=== PATIENT | male | born 1960 | race African-American/Black ===

== ENCOUNTER 2018-12-26 19:17 | Inpatient (IN) ==
[2018-12-26] MEDS ORDERED: MORPHINE 4 MG/1 ML VIAL IV STA (19:38)
[2018-12-26] MEDS ORDERED: ONDANSETRON 4 MG/2 ML VIAL IV STA (19:38)
[2018-12-26] MEDS ORDERED: PANTOPRAZOLE 40 MG VIAL IV STA (19:38)
[2018-12-26 19:55] LABS: Basophils # 0.1 10*3/uL (0.0-0.2); Basophils % 0.7 % (0.0-0.8); Eosinophils # 0.4 10*3/uL (0.0-0.87); Eosinophils % 4.6 % (0.00-10.9); Hematocrit 39.9 VOL% (42.0-52.0); Hemoglobin 12.5 GM/DL (14.0-18.0); Immature Granulocytes % 0.3 %; Immature Granulocytes Absolute 0.03 #; Lymphocytes # 2.5 10*3/uL (1.4-4.0); Lymphocytes % 28.3 % (21.2-54.2); Mean Corpuscular HGB Conc 31.3 GM/DL (32-36); Mean Corpuscular Volume 81.3 FL (87-102); Mean Platelet Volume 10.8 FL (9.6-12.0); Monocytes % 10.5 % (1.7-12.7); Neutrophils % 55.6 % (38.7-73.9); Platelet Count 199 T/CUMM (130-400); Red Blood Count 4.91 MC/CUMM (3.8-5.5); Red Cell Distribution Width 14.9 % (9.3-17.3); White Blood Count 8.9 T/CUMM (4-12)
[2018-12-26 20:19] LABS: Albumin 3.4 G/DL (3.4-5.0); Calcium 9.2 MG/DL (8.5-10.1); Osmolality,Calculated 278.7 MOS/KG (273-304); Total Protein 8.3 G/DL (6.4-8.3)
[2018-12-26] MEDS ORDERED: ALBUTEROL/IPRATROPIUM 3 ML NEB RESP TX STA (21:44)
[2018-12-26 23:29] LABS: Apearance,Urine CLEAR (Clear); Bilirubin,Urine Negative (Negative); Blood, Urine Negative (Negative); Glucose,Urine (UA) Negative (Negative); Ketones,Urine Negative (Negative); Nitrite,Urine Negative (Negative); Protein,Urine Negative; RBC,Urine 4 /HPF (0-4); Squamous Epithelial Cell,Urine Occasional /HPF (0-10); Urine Color Yellow (Yellow); Urine Specific Gravity 1.036 (1.001-1.035); Urine Urobilinogen < 2.0 EU/DL (0.2-1.0); WBC,Urine 20 /HPF (0-6)
[2018-12-26] MEDS ORDERED: PROMETHAZINE 25 MG TABLET PO PRN (23:30)
[2018-12-27] MEDS: MORPHINE 4 MG/1 ML VIAL IV PRN ×3 (02:51→15:37)
[2018-12-27 07:31] LABS: Albumin 3.1 G/DL (3.4-5.0); Bilirubin,Total 1.9 MG/DL (0.2-1.0); Osmolality,Calculated 278.5 MOS/KG (273-304); Total Protein 7.7 G/DL (6.4-8.3)
[2018-12-27 08:54] LABS: PT Patient Result 10.8 SECS
[2018-12-27] MEDS: MECLIZINE 12.5 MG TABLET PO SCH ×4 (09:00→20:36)
[2018-12-27] MEDS: amLODIPine 10 MG TABLET PO SCH (09:56)
[2018-12-27] MEDS: METOCLOPRAMIDE 5 MG TABLET PO SCH ×4 (09:56→20:35)
[2018-12-27] MEDS ORDERED: DIAZEPAM 5 MG TABLET PO ONE (12:23)
[2018-12-27] MEDS: predniSONE 10 MG TABLET PO SCH (16:19)
[2018-12-27] MEDS: MEGESTROL 40 MG TABLET PO SCH (16:19)
[2018-12-27] MEDS: PANTOPRAZOLE 40 MG TABLET PO SCH (16:19)
[2018-12-27] MEDS ORDERED: fentaNYL 25 MCG/HR PATCH TRANSDERM SCH (18:00)
[2018-12-27] MEDS: ALBUTEROL/IPRATROPIUM 3 ML NEB RESP TX SCH (19:39)
[2018-12-27] MEDS: ENOXAPARIN 40 MG/0.4 ML SYRINGE SUBCUT SCH (20:35)
[2018-12-28] MEDS: ALBUTEROL/IPRATROPIUM 3 ML NEB RESP TX SCH ×7 (00:11→23:00)
[2018-12-28] MEDS: MORPHINE 4 MG/1 ML VIAL IV PRN ×3 (04:14→21:36)
[2018-12-28 07:12] LABS: Hepatitis B Core IgM Quant 0.09 Index; Hepatitis B Surface Ag Quant < 0.10 Index; Hepatitis B Surface Ag Result Negative (Negative); Hepatitis C Virus Ab Quant > 11.00 Index; Hepatitis C Virus Ab Result Positive (Negative)
[2018-12-28] MEDS: MEGESTROL 40 MG TABLET PO SCH (09:23)
[2018-12-28] MEDS: MECLIZINE 12.5 MG TABLET PO SCH ×4 (09:23→20:05)
[2018-12-28] MEDS: METOCLOPRAMIDE 5 MG TABLET PO SCH ×4 (09:23→20:05)
[2018-12-28] MEDS: amLODIPine 10 MG TABLET PO SCH (09:24)
[2018-12-28] MEDS: PANTOPRAZOLE 40 MG TABLET PO SCH (09:24)
[2018-12-28] MEDS: predniSONE 10 MG TABLET PO SCH (09:24)
[2018-12-28] MEDS: ENOXAPARIN 40 MG/0.4 ML SYRINGE SUBCUT SCH (20:05)
[2018-12-29] MEDS: ALBUTEROL/IPRATROPIUM 3 ML NEB RESP TX SCH ×6 (02:53→23:15)
[2018-12-29] MEDS: MORPHINE 4 MG/1 ML VIAL IV PRN ×2 (07:05→14:18)
[2018-12-29] MEDS: METOCLOPRAMIDE 5 MG TABLET PO SCH ×4 (07:32→21:16)
[2018-12-29] MEDS: MEGESTROL 40 MG TABLET PO SCH (08:44)
[2018-12-29] MEDS: MECLIZINE 12.5 MG TABLET PO SCH ×4 (08:45→21:16)
[2018-12-29] MEDS: predniSONE 10 MG TABLET PO SCH (08:45)
[2018-12-29] MEDS: PANTOPRAZOLE 40 MG TABLET PO SCH (08:47)
[2018-12-29] MEDS: amLODIPine 10 MG TABLET PO SCH (08:47)
[2018-12-29] MEDS: fentaNYL 50 MCG/HR PATCH TRANSDERM SCH (15:08)
[2018-12-29] MEDS: ENOXAPARIN 40 MG/0.4 ML SYRINGE SUBCUT SCH (21:17)
[2018-12-30] MEDS: ALBUTEROL/IPRATROPIUM 3 ML NEB RESP TX SCH ×6 (03:10→23:25)
[2018-12-30 05:21] LABS: Basophils # 0.1 10*3/uL (0.0-0.2); Basophils % 0.7 % (0.0-0.8); Eosinophils # 0.2 10*3/uL (0.0-0.87); Eosinophils % 2.3 % (0.00-10.9); Hematocrit 37.7 VOL% (42.0-52.0); Hemoglobin 11.8 GM/DL (14.0-18.0); Immature Granulocytes % 0.3 %; Immature Granulocytes Absolute 0.03 #; Lymphocytes # 2.9 10*3/uL (1.4-4.0); Lymphocytes % 33.3 % (21.2-54.2); Mean Corpuscular HGB Conc 31.3 GM/DL (32-36); Mean Corpuscular Volume 81.3 FL (87-102); Mean Platelet Volume 10.3 FL (9.6-12.0); Monocytes % 7.8 % (1.7-12.7); Neutrophils % 55.6 % (38.7-73.9); Platelet Count 193 T/CUMM (130-400); Red Blood Count 4.64 MC/CUMM (3.8-5.5); White Blood Count 8.7 T/CUMM (4-12)
[2018-12-30 05:56] LABS: Calcium 9.1 MG/DL (8.5-10.1)
[2018-12-30] MEDS: amLODIPine 10 MG TABLET PO SCH (08:18)
[2018-12-30] MEDS: METOCLOPRAMIDE 5 MG TABLET PO SCH ×4 (08:18→21:13)
[2018-12-30] MEDS: MECLIZINE 12.5 MG TABLET PO SCH ×4 (08:19→21:14)
[2018-12-30] MEDS: predniSONE 10 MG TABLET PO SCH (08:19)
[2018-12-30] MEDS: MEGESTROL 40 MG TABLET PO SCH (08:20)
[2018-12-30] MEDS: PANTOPRAZOLE 40 MG TABLET PO SCH (08:21)
[2018-12-30] MEDS: ENOXAPARIN 40 MG/0.4 ML SYRINGE SUBCUT SCH (21:14)
[2018-12-30] MEDS: ONDANSETRON 4 MG/2 ML VIAL IV PRN (22:25)
[2018-12-30] MEDS: MORPHINE 4 MG/1 ML VIAL IV PRN (22:25)
[2018-12-31] MEDS: ALBUTEROL/IPRATROPIUM 3 ML NEB RESP TX SCH ×6 (03:23→23:50)
[2018-12-31] MEDS: METOCLOPRAMIDE 5 MG TABLET PO SCH ×4 (08:20→21:51)
[2018-12-31] MEDS: MEGESTROL 40 MG TABLET PO SCH (09:12)
[2018-12-31] MEDS: predniSONE 10 MG TABLET PO SCH (09:12)
[2018-12-31] MEDS: MECLIZINE 12.5 MG TABLET PO SCH ×4 (09:12→21:51)
[2018-12-31] MEDS: amLODIPine 10 MG TABLET PO SCH (09:12)
[2018-12-31] MEDS: PANTOPRAZOLE 40 MG TABLET PO SCH (09:13)
[2018-12-31] MEDS: MORPHINE 4 MG/1 ML VIAL IV PRN ×2 (16:17→23:57)
[2018-12-31] MEDS: ENOXAPARIN 40 MG/0.4 ML SYRINGE SUBCUT SCH (21:50)
[2018-12-31] MEDS: ONDANSETRON 4 MG/2 ML VIAL IV PRN (23:57)
[2019-01-01] MEDS: ALBUTEROL/IPRATROPIUM 3 ML NEB RESP TX SCH ×3 (03:45→10:55)
[2019-01-01] MEDS: fentaNYL 50 MCG/HR PATCH TRANSDERM SCH (09:27)
[2019-01-01] MEDS: MECLIZINE 12.5 MG TABLET PO SCH ×2 (09:27→14:02)
[2019-01-01] MEDS: MEGESTROL 40 MG TABLET PO SCH (09:28)
[2019-01-01] MEDS: amLODIPine 10 MG TABLET PO SCH (09:28)
[2019-01-01] MEDS: PANTOPRAZOLE 40 MG TABLET PO SCH (09:28)
[2019-01-01] MEDS: METOCLOPRAMIDE 5 MG TABLET PO SCH ×2 (09:28→11:58)
[2019-01-01] MEDS: predniSONE 10 MG TABLET PO SCH (09:28)
[2019-01-01 11:57] VITALS: BP 144/85
== END 2019-01-01 14:03 | disposition home or self-care (01) | DRG 436 ==
LOC: N.ED 19:17 → N.EDINP 23:16 → N.3E 23:53
PROVIDERS: ADMIT Hospitalist; ATTEND Hospitalist

== ENCOUNTER 2019-04-03 13:56 | Inpatient (IN) ==
[2019-04-03 15:53] LABS: Apearance,Urine CLEAR (Clear); Bilirubin,Urine Negative (Negative); Blood, Urine Small mg/dL (Negative); Glucose,Urine (UA) Negative (Negative); Ketones,Urine Negative (Negative); Mucus,Urine Occasional /LPF (Occasional); Nitrite,Urine Negative (Negative); Protein,Urine 100 MG/DL; RBC,Urine 9 /HPF (0-4); Squamous Epithelial Cell,Urine Occasional /HPF (0-10); Transitional Epi Cells,Urine Occasional /HPF (<1); Urine Color Amber (Yellow); Urine Specific Gravity 1.017 (1.001-1.035); WBC,Urine 88 /HPF (0-6)
[2019-04-03 15:54] LABS: Basophils % 0.3 % (0.0-0.8); Eosinophils % 0.2 % (0.00-10.9); Hematocrit 53.8 VOL% (42.0-52.0); Hemoglobin 17.9 GM/DL (14.0-18.0); Immature Granulocytes % 0.5 %; Immature Granulocytes Absolute 0.03 #; Lymphocytes # 1.7 10*3/uL (1.4-4.0); Lymphocytes % 28.5 % (21.2-54.2); Mean Corpuscular HGB Conc 33.3 GM/DL (32-36); Mean Corpuscular Volume 75.4 FL (87-102); Mean Platelet Volume 9.8 FL (9.6-12.0); Monocytes % 5.6 % (1.7-12.7); Neutrophils % 64.9 % (38.7-73.9); Platelet Count 118 T/CUMM (130-400); Red Blood Count 7.14 MC/CUMM (3.8-5.5); Red Cell Distribution Width 21.2 % (9.3-17.3)
[2019-04-03 16:14] LABS: Alanine Aminotransferase 150 U/L (16-61); Albumin 3.6 G/DL (3.4-5.0); Alkaline Phosphatase 147 U/L (45-117); Aspartate Amino Transferase 105 U/L (0-37); Blood Urea Nitrogen 25 MG/DL (7-18); Calcium 9.4 MG/DL (8.5-10.1); Estimated Glom Filtration Rate 64 ML/MIN; Glucose 106 MG/DL (74-106); Total Protein 7.8 G/DL (6.4-8.3)
[2019-04-03 16:15] LABS: Platelet Estimate Adequate
[2019-04-03] MEDS ORDERED: ONDANSETRON 4 MG/2 ML VIAL IV STA (16:44)
[2019-04-03] MEDS ORDERED: SODIUM CHLORIDE 0.9% 1,000 ML IV STA ×2 (16:44→17:47)
[2019-04-03] MEDS ORDERED: LEVOFLOXACIN INJ 750 MG in PREMIX 1 EACH IV STA (17:48)
[2019-04-03] MEDS ORDERED: ACETAMINOPHEN 325 MG TABLET PO PRN (18:08)
[2019-04-03] MEDS ORDERED: ONDANSETRON 4 MG/2 ML VIAL IV PRN (18:08)
[2019-04-03] MEDS ORDERED: MORPHINE 4 MG/1 ML VIAL IV STA (18:29)
[2019-04-03] MEDS ORDERED: MORPHINE 4 MG/1 ML VIAL IV PRN (18:29)
[2019-04-03] MEDS: SODIUM CHLORIDE 0.9% 1,000 ML IV SCH (20:41)
[2019-04-04] MEDS: SODIUM CHLORIDE 0.9% 1,000 ML IV SCH ×3 (04:16→20:21)
[2019-04-04 07:05] LABS: Basophils % 0.3 % (0.0-0.8); Eosinophils # 0.1 10*3/uL (0.0-0.87); Eosinophils % 1.6 % (0.00-10.9); Hematocrit 49.5 VOL% (42.0-52.0); Immature Granulocytes % 0.3 %; Immature Granulocytes Absolute 0.02 #; Lymphocytes # 2.4 10*3/uL (1.4-4.0); Lymphocytes % 41.4 % (21.2-54.2); Mean Corpuscular HGB Conc 31.5 GM/DL (32-36); Mean Platelet Volume 11.3 FL (9.6-12.0); Monocytes % 8.5 % (1.7-12.7); Neutrophils % 47.9 % (38.7-73.9); Red Blood Count 6.19 MC/CUMM (3.8-5.5); Red Cell Distribution Width 21.3 % (9.3-17.3); White Blood Count 5.8 T/CUMM (4-12)
[2019-04-04 07:09] LABS: Hemoglobin 15.6 GM/DL (14.0-18.0); Platelet Count 156 T/CUMM (130-400)
[2019-04-04 07:17] LABS: Osmolality,Calculated 287.8 MOS/KG (273-304); Total Protein 6.7 G/DL (6.4-8.3)
[2019-04-04] MEDS: LENVATINIB PO SCH ×2 (08:52→17:51)
[2019-04-04] MEDS: predniSONE 10 MG TABLET PO SCH (08:52)
[2019-04-04] MEDS: PANTOPRAZOLE 40 MG TABLET PO SCH (08:52)
[2019-04-04] MEDS ORDERED: LEVOFLOXACIN INJ 500 MG in PREMIX 1 EACH IV SCH (18:00)
[2019-04-05] MEDS: SODIUM CHLORIDE 0.9% 1,000 ML IV SCH (04:17)
[2019-04-05] MEDS: PANTOPRAZOLE 40 MG TABLET PO SCH (08:23)
[2019-04-05] MEDS: predniSONE 10 MG TABLET PO SCH (08:23)
[2019-04-05 10:33] VITALS: BP 152/89
[2019-04-06] MEDS ORDERED: fentaNYL 50 MCG/HR PATCH TRANSDERM SCH (09:00)
== END 2019-04-05 11:05 | disposition home or self-care (01) | DRG 872 ==
LOC: N.ED 13:56 → N.EDINP 18:08 → N.4E 18:36
PROVIDERS: ADMIT Internal Medicine; ATTEND Internal Medicine

== ENCOUNTER 2019-08-15 13:21 | Observation (INO) ==
[2019-08-15] MEDS ORDERED: HYDROmorphone 2 MG/1 ML VIAL IV STA (13:53)
[2019-08-15] MEDS ORDERED: ONDANSETRON 4 MG/2 ML VIAL IV STA (13:53)
[2019-08-15] MEDS ORDERED: SODIUM CHLORIDE 0.9% 1,000 ML IV STA (13:53)
[2019-08-15 14:55] LABS: Basophils % 0.4 % (0.0-0.8); Eosinophils % 0.2 % (0.00-10.9); Hematocrit 50.8 VOL% (42.0-52.0); Hemoglobin 16.5 GM/DL (14.0-18.0); Immature Granulocytes % 0.4 %; Immature Granulocytes Absolute 0.02 #; Lymphocytes # 0.3 10*3/uL (1.4-4.0); Mean Corpuscular HGB Conc 32.5 GM/DL (32-36); Mean Corpuscular Volume 84.9 FL (87-102); Mean Platelet Volume 10.7 FL (9.6-12.0); Platelet Count 153 T/CUMM (130-400); Red Blood Count 5.98 MC/CUMM (3.8-5.5); Red Cell Distribution Width 18.7 % (9.3-17.3); White Blood Count 4.9 T/CUMM (4-12)
[2019-08-15 15:10] LABS: Albumin 3.2 G/DL (3.4-5.0); Bilirubin,Total 2.1 MG/DL (0.2-1.0); Calcium 8.8 MG/DL (8.5-10.1); Osmolality,Calculated 275.8 MOS/KG (273-304); Total Protein 7.1 G/DL (6.4-8.3)
[2019-08-15] MEDS ORDERED: ALBUTEROL 2.5 MG/3 ML NEB RESP TX PRN (15:44)
[2019-08-15] MEDS ORDERED: hydrALAZINE 20 MG/1 ML VIAL IV PRN (15:44)
[2019-08-15] MEDS ORDERED: diphenhydrAMINE CAP 25 MG CAPSULE PO PRN (15:44)
[2019-08-15] MEDS ORDERED: CALCIUM CARBONATE CHEW 500 MG TABLET PO PRN (15:44)
[2019-08-15] MEDS ORDERED: DOCUSATE SODIUM 100 MG CAPSULE PO PRN (15:44)
[2019-08-15] MEDS ORDERED: PROMETHAZINE 25 MG/1 ML VIAL IM PRN (15:44)
[2019-08-15] MEDS ORDERED: guaiFENesin/DM ER 600-30 MG TABLET PO PRN (15:44)
[2019-08-15] MEDS ORDERED: SIMETHICONE CHEW 125 MG TABLET PO PRN (15:44)
[2019-08-15] MEDS ORDERED: ALUMINUM/MAGNES/SIMETH MAX STR 30 ML UDCUP PO PRN (15:44)
[2019-08-15] MEDS ORDERED: BISACODYL 5 MG TABLET PO PRN (15:44)
[2019-08-15] MEDS ORDERED: LACTULOSE 20 GM/30 ML UDCUP PO PRN (15:44)
[2019-08-15] MEDS ORDERED: ZALEPLON 5 MG CAPSULE PO PRN (15:44)
[2019-08-15] MEDS ORDERED: SODIUM CHLORIDE 0.9% 1,000 ML IV SCH (16:00)
[2019-08-15] MEDS ORDERED: MAGNESIUM HYDROXIDE SUSP 30 ML UDCUP PO STA (16:29)
[2019-08-15] MEDS ORDERED: BISACODYL 5 MG TABLET PO STA (16:29)
[2019-08-15] MEDS ORDERED: MORPHINE 4 MG/1 ML VIAL IV PRN (16:51)
[2019-08-15 19:07] LABS: Apearance,Urine CLEAR (Clear); Bilirubin,Urine Negative (Negative); Blood, Urine Negative (Negative); Glucose,Urine (UA) Negative (Negative); Ketones,Urine Negative (Negative); Mucus,Urine Occasional /LPF (Occasional); Nitrite,Urine Negative (Negative); Protein,Urine 100 MG/DL; RBC,Urine <1 /HPF (0-4); Squamous Epithelial Cell,Urine Occasional /HPF (0-10); Urine Specific Gravity 1.014 (1.001-1.035); WBC,Urine <1 /HPF (0-6)
[2019-08-15 19:08] LABS: Urine Color Dark Yellow (Yellow)
[2019-08-15] MEDS ORDERED: LINACLOTIDE 145 MCG CAPSULE PO ONE (21:00)
[2019-08-15] MEDS: METOPROLOL TARTRATE 25 MG TABLET PO SCH (21:23)
[2019-08-16 05:34] LABS: Basophils % 0.3 % (0.0-0.8); Eosinophils % 0.3 % (0.00-10.9); Hematocrit 49.3 VOL% (42.0-52.0); Hemoglobin 15.7 GM/DL (14.0-18.0); Immature Granulocytes % 0.6 %; Immature Granulocytes Absolute 0.02 #; Lymphocytes # 0.5 10*3/uL (1.4-4.0); Lymphocytes % 14.8 % (21.2-54.2); Mean Corpuscular HGB Conc 31.8 GM/DL (32-36); Mean Corpuscular Volume 86.2 FL (87-102); Mean Platelet Volume 11.4 FL (9.6-12.0); Monocytes % 12.8 % (1.7-12.7); Neutrophils % 71.2 % (38.7-73.9); Platelet Count 171 T/CUMM (130-400); Red Blood Count 5.72 MC/CUMM (3.8-5.5); Red Cell Distribution Width 18.6 % (9.3-17.3); White Blood Count 3.6 T/CUMM (4-12)
[2019-08-16 06:09] LABS: Bilirubin,Total 2.2 MG/DL (0.2-1.0); Calcium 8.9 MG/DL (8.5-10.1); Osmolality,Calculated 276.7 MOS/KG (273-304); Risk Ratio 3.23; Thyroid Stimulating Hormone 4.91 uIU/ml (0.358-3.74); Total Protein 6.8 G/DL (6.4-8.3); VLDL CHOLESTEROL 19.4 MG/DL
[2019-08-16] MEDS ORDERED: LINACLOTIDE 145 MCG CAPSULE PO SCH (07:30)
[2019-08-16] MEDS ORDERED: COENZYME Q10 100 MG CAPSULE PO SCH (09:00)
[2019-08-16] MEDS ORDERED: PANTOPRAZOLE 40 MG TABLET PO SCH (09:00)
[2019-08-16] MEDS ORDERED: OMEGA 3 ACID ETHYL ESTERS 1 GM CAPSULE PO SCH (09:00)
[2019-08-16] MEDS ORDERED: LENVATINIB PO SCH (09:00)
[2019-08-16] MEDS ORDERED: predniSONE 10 MG TABLET PO SCH (09:00)
[2019-08-16] MEDS ORDERED: amLODIPine 10 MG TABLET PO SCH (09:00)
[2019-08-16 09:02] VITALS: BP 139/89
[2019-08-16] MEDS: METOPROLOL TARTRATE 25 MG TABLET PO SCH (09:32)
[2019-08-18] MEDS ORDERED: fentaNYL 50 MCG/HR PATCH TRANSDERM SCH (09:00)
== END 2019-08-16 11:35 | disposition home or self-care (01) ==
LOC: N.ED 13:21 → N.EDINP 13:21 → N.2W 19:26
PROVIDERS: ADMIT Internal Medicine; ATTEND Internal Medicine

== ENCOUNTER 2020-01-01 12:28 | Observation (INO) ==
[2020-01-01] MEDS ORDERED: SODIUM CHLORIDE 0.9% 1,000 ML IV STA (13:02)
[2020-01-01] MEDS ORDERED: ONDANSETRON 4 MG/2 ML VIAL IV ONE (13:02)
[2020-01-01] MEDS ORDERED: MORPHINE 4 MG/1 ML VIAL IV STA ×2 (13:06→15:59)
[2020-01-01 13:49] LABS: Basophils % 0.3 % (0.0-0.8); Eosinophils % 0.3 % (0.00-10.9); Hematocrit 56.7 VOL% (42.0-52.0); Hemoglobin 19.2 GM/DL (14.0-18.0); Immature Granulocytes % 0.3 %; Immature Granulocytes Absolute 0.01 #; Lymphocytes # 0.8 10*3/uL (1.4-4.0); Lymphocytes % 20.6 % (21.2-54.2); Mean Corpuscular HGB Conc 33.9 GM/DL (32-36); Mean Corpuscular Volume 83.8 FL (87-102); Mean Platelet Volume 10.4 FL (9.6-12.0); Monocytes % 9.6 % (1.7-12.7); Neutrophils % 68.9 % (38.7-73.9); Platelet Count 164 T/CUMM (130-400); Red Blood Count 6.77 MC/CUMM (3.8-5.5); Red Cell Distribution Width 19.4 % (9.3-17.3); White Blood Count 3.6 T/CUMM (4-12)
[2020-01-01 14:04] LABS: Apearance,Urine Slightly Hazy (Clear); Bacteria,Urine Occasional /HPF (Few); Bilirubin,Urine Small mg/dL (Negative); Blood, Urine Negative (Negative); Glucose,Urine (UA) Negative (Negative); Hyaline Casts,Urine 78 /LPF (0-3); Ketones,Urine 5 mg/dL (Negative); Mucus,Urine Occasional /LPF (Occasional); Nitrite,Urine Positive (Negative); Protein,Urine 100 MG/DL; RBC,Urine 2 /HPF (0-4); Squamous Epithelial Cell,Urine Few /HPF (0-10); Urine Color Amber (Yellow); Urine Specific Gravity 1.019 (1.001-1.035); WBC,Urine 5 /HPF (0-6)
[2020-01-01] MEDS ORDERED: cefTRIAXone 1,000 MG in SODIUM CHLORIDE 0.9% 100 ML IV STA (14:19)
[2020-01-01 16:04] LABS: Albumin 2.8 G/DL (3.4-5.0); Bilirubin,Total 4.9 MG/DL (0.2-1.0); Calcium 8.7 MG/DL (8.5-10.1); Total Protein 7.7 G/DL (6.4-8.3)
[2020-01-01] MEDS ORDERED: DEXTROSE 50% 25 GM/50 ML VIAL IV PRN (18:16)
[2020-01-01] MEDS ORDERED: GLUCAGON 1 MG VIAL IM PRN (18:16)
[2020-01-01] MEDS: ONDANSETRON 4 MG/2 ML VIAL IV PRN (21:06)
[2020-01-01] MEDS: MORPHINE 4 MG/1 ML VIAL IV PRN (21:06)
[2020-01-01] MEDS: SODIUM CHLORIDE 0.9% 1,000 ML IV SCH ×2 (22:27→22:34)
[2020-01-02] MEDS: SODIUM CHLORIDE 0.9% 1,000 ML IV SCH ×4 (04:36→22:45)
[2020-01-02 05:18] LABS: Basophils % 0.3 % (0.0-0.8); Eosinophils % 1.2 % (0.00-10.9); Hematocrit 47.4 VOL% (42.0-52.0); Hemoglobin 16.4 GM/DL (14.0-18.0); Immature Granulocytes % 0.3 %; Immature Granulocytes Absolute 0.01 #; Lymphocytes # 0.7 10*3/uL (1.4-4.0); Lymphocytes % 22.7 % (21.2-54.2); Mean Corpuscular HGB Conc 34.6 GM/DL (32-36); Mean Corpuscular Volume 83.5 FL (87-102); Mean Platelet Volume 10.9 FL (9.6-12.0); Monocytes % 18.4 % (1.7-12.7); Neutrophils % 57.1 % (38.7-73.9); Platelet Count 145 T/CUMM (130-400); Red Blood Count 5.68 MC/CUMM (3.8-5.5); Red Cell Distribution Width 18.6 % (9.3-17.3); White Blood Count 3.2 T/CUMM (4-12)
[2020-01-02 05:37] LABS: Calcium 8.3 MG/DL (8.5-10.1); Osmolality,Calculated 291.3 MOS/KG (273-304)
[2020-01-02 05:48] LABS: Band Neutrophils 1 % (0-10); Eosinophils 1 % (0-10); Lymphocytes 22 % (20-55); Platelet Estimate Normal; Segmented Neutrophils 56 % (50-85); Total Cells Counted 100
[2020-01-02 08:54] LABS: Albumin 2.4 G/DL (3.4-5.0); Bilirubin,Direct 2.11 MG/DL (0.0-0.20); Bilirubin,Total 3.1 MG/DL (0.2-1.0); Total Protein 6.6 G/DL (6.4-8.3)
[2020-01-02] MEDS: cefTRIAXone 1,000 MG in SYRINGE 1 EACH IV SCH (10:09)
[2020-01-03 05:55] LABS: Basophils % 0.4 % (0.0-0.8); Eosinophils % 0.4 % (0.00-10.9); Hematocrit 45.9 VOL% (42.0-52.0); Hemoglobin 15.1 GM/DL (14.0-18.0); Lymphocytes # 0.6 10*3/uL (1.4-4.0); Lymphocytes % 22.5 % (21.2-54.2); Mean Corpuscular HGB Conc 32.9 GM/DL (32-36); Mean Corpuscular Volume 86.8 FL (87-102); Mean Platelet Volume 9.5 FL (9.6-12.0); Neutrophils % 57.7 % (38.7-73.9); Platelet Count 87 T/CUMM (130-400); Red Blood Count 5.29 MC/CUMM (3.8-5.5); Red Cell Distribution Width 19.1 % (9.3-17.3); White Blood Count 2.6 T/CUMM (4-12)
[2020-01-03 06:19] LABS: Calcium 8.1 MG/DL (8.5-10.1); Osmolality,Calculated 293.6 MOS/KG (273-304)
[2020-01-03 06:20] LABS: Eosinophils 2 % (0-10); Lymphocytes 22 % (20-55); Platelet Estimate Decreased; Segmented Neutrophils 61 % (50-85); Total Cells Counted 100
[2020-01-03 06:21] LABS: Albumin 2.3 G/DL (3.4-5.0); Bilirubin,Total 3.7 MG/DL (0.2-1.0); Calcium 8.2 MG/DL (8.5-10.1); Osmolality,Calculated 290.7 MOS/KG (273-304); Total Protein 6.1 G/DL (6.4-8.3)
[2020-01-03] MEDS ORDERED: INDOCYANINE GREEN 25 MG VIAL IV ONE (06:30)
[2020-01-03] MEDS ORDERED: cefOXitin 2,000 MG in SYRINGE 1 EACH IV ONE (06:30)
[2020-01-03] MEDS: SODIUM CHLORIDE 0.9% 1,000 ML IV SCH ×3 (06:33→21:37)
[2020-01-03] MEDS: cefTRIAXone 1,000 MG in SYRINGE 1 EACH IV SCH (09:22)
[2020-01-03] MEDS: MORPHINE 4 MG/1 ML VIAL IV PRN ×3 (11:04→23:46)
[2020-01-03] MEDS ORDERED: MIDAZOLAM 10 MG/2 ML VIAL IV ONE (11:59)
[2020-01-03] MEDS ORDERED: DIAZEPAM 5 MG TABLET PO ONE (11:59)
[2020-01-03] MEDS ORDERED: fentaNYL 100 MCG/2 ML VIAL IV ONE (11:59)
[2020-01-03] MEDS ORDERED: fentaNYL 100 MCG/2 ML VIAL ONE (14:12)
[2020-01-03] MEDS ORDERED: MIDAZOLAM 2 MG/2 ML VIAL ONE (14:13)
[2020-01-03] MEDS ORDERED: ONDANSETRON 4 MG/2 ML VIAL ONE (14:15)
[2020-01-03] MEDS: ONDANSETRON 4 MG/2 ML VIAL IV PRN (14:20)
[2020-01-04] MEDS: SODIUM CHLORIDE 0.9% 1,000 ML IV SCH ×3 (03:07→10:11)
[2020-01-04] MEDS: cefTRIAXone 1,000 MG in SYRINGE 1 EACH IV SCH (09:52)
[2020-01-04 10:42] LABS: Basophils % 0.3 % (0.0-0.8); Eosinophils % 0.6 % (0.00-10.9); Hematocrit 47.7 VOL% (42.0-52.0); Hemoglobin 15.8 GM/DL (14.0-18.0); Immature Granulocytes % 0.3 %; Immature Granulocytes Absolute 0.01 #; Lymphocytes % 26.7 % (21.2-54.2); Mean Corpuscular HGB Conc 33.1 GM/DL (32-36); Mean Corpuscular Volume 86.7 FL (87-102); Monocytes % 14.9 % (1.7-12.7); Neutrophils % 57.2 % (38.7-73.9); Platelet Count 100 T/CUMM (130-400); Red Cell Distribution Width 18.9 % (9.3-17.3); White Blood Count 3.6 T/CUMM (4-12)
[2020-01-04 11:09] LABS: Calcium 7.9 MG/DL (8.5-10.1); Osmolality,Calculated 279.3 MOS/KG (273-304)
[2020-01-04 12:32] VITALS: BP 130/100
== END 2020-01-04 15:56 | disposition home health service (06) ==
LOC: N.ED 12:28 → INTOOBSV 18:18 → N.EDINP 18:18 → N.TELES 20:25
PROVIDERS: ADMIT Internal Medicine; ATTEND Internal Medicine

== ENCOUNTER 2020-01-06 00:52 | Observation (INO) ==
[2020-01-06 02:26] LABS: Basophils % 0.2 % (0.0-0.8); Hemoglobin 16.9 GM/DL (14.0-18.0); Immature Granulocytes % 0.4 %; Immature Granulocytes Absolute 0.02 #; Lymphocytes # 0.4 10*3/uL (1.4-4.0); Lymphocytes % 9.1 % (21.2-54.2); Mean Corpuscular HGB Conc 34.5 GM/DL (32-36); Mean Platelet Volume 11.1 FL (9.6-12.0); Monocytes % 6.4 % (1.7-12.7); Neutrophils % 83.9 % (38.7-73.9); Platelet Count 168 T/CUMM (130-400); Red Blood Count 5.83 MC/CUMM (3.8-5.5); Red Cell Distribution Width 19.5 % (9.3-17.3); White Blood Count 4.9 T/CUMM (4-12)
[2020-01-06 02:40] LABS: Alanine Aminotransferase 34 U/L (16-61); Albumin 2.5 G/DL (3.4-5.0); Alkaline Phosphatase 154 U/L (45-117); Aspartate Amino Transferase 53 U/L (0-37); Blood Urea Nitrogen 9 MG/DL (7-18); Calcium 8.5 MG/DL (8.5-10.1); Estimated Glom Filtration Rate 85 ML/MIN; Glucose 112 MG/DL (74-106); Osmolality,Calculated 276.5 MOS/KG (273-304)
[2020-01-06] MEDS ORDERED: LACTATED RINGERS 1,000 ML IV ONE (04:06)
[2020-01-06] MEDS ORDERED: DEXTROSE 50% 25 GM/50 ML VIAL IV PRN (07:22)
[2020-01-06] MEDS ORDERED: GLUCAGON 1 MG VIAL IM PRN (07:22)
[2020-01-06] MEDS ORDERED: ALUMINUM/MAGNES/SIMETH MAX STR 30 ML UDCUP PO PRN (07:22)
[2020-01-06] MEDS ORDERED: SIMETHICONE CHEW 125 MG TABLET PO PRN (07:22)
[2020-01-06] MEDS ORDERED: ALBUTEROL 2.5 MG/3 ML NEB RESP TX PRN (07:22)
[2020-01-06] MEDS ORDERED: ONDANSETRON 4 MG/2 ML VIAL IV PRN (07:22)
[2020-01-06] MEDS ORDERED: MORPHINE 4 MG/1 ML VIAL IV PRN (07:22)
[2020-01-06] MEDS: SODIUM CHLORIDE 0.9% 1,000 ML IV SCH ×4 (09:11→16:56)
[2020-01-06] MEDS: CIPROFLOXACIN INJ 400 MG in PREMIX 1 EACH IV SCH ×2 (09:11→20:15)
[2020-01-06] MEDS: PANTOPRAZOLE 40 MG TABLET PO SCH (09:11)
[2020-01-06 12:25] LABS: Apearance,Urine CLEAR (Clear); Bacteria,Urine Occasional /HPF (Few); Bilirubin,Urine Negative (Negative); Blood, Urine Negative (Negative); Glucose,Urine (UA) Negative (Negative); Ketones,Urine 20 mg/dL (Negative); Mucus,Urine Occasional /LPF (Occasional); Nitrite,Urine Negative (Negative); Protein,Urine 100 MG/DL; RBC,Urine 4 /HPF (0-4); Squamous Epithelial Cell,Urine Occasional /HPF (0-10); Urine Color Amber (Yellow); Urine Specific Gravity > 1.060 (1.001-1.035); WBC,Urine 1 /HPF (0-6)
[2020-01-06] MEDS: metroNIDAZOLE INJ 500 MG in PREMIX 1 EACH IV SCH ×2 (12:48→18:15)
[2020-01-07] MEDS: metroNIDAZOLE INJ 500 MG in PREMIX 1 EACH IV SCH ×2 (01:52→10:59)
[2020-01-07] MEDS: SODIUM CHLORIDE 0.9% 1,000 ML IV SCH ×2 (04:34→05:18)
[2020-01-07 06:31] LABS: Basophils % 0.3 % (0.0-0.8); Eosinophils # 0.1 10*3/uL (0.0-0.87); Eosinophils % 1.5 % (0.00-10.9); Hematocrit 39.2 VOL% (42.0-52.0); Hemoglobin 13.7 GM/DL (14.0-18.0); Immature Granulocytes % 0.3 %; Immature Granulocytes Absolute 0.01 #; Lymphocytes # 0.8 10*3/uL (1.4-4.0); Lymphocytes % 22.7 % (21.2-54.2); Mean Corpuscular HGB Conc 34.9 GM/DL (32-36); Mean Corpuscular Volume 85.4 FL (87-102); Mean Platelet Volume 11.3 FL (9.6-12.0); Monocytes % 17.6 % (1.7-12.7); Neutrophils % 57.6 % (38.7-73.9); Platelet Count 148 T/CUMM (130-400); Red Blood Count 4.59 MC/CUMM (3.8-5.5); Red Cell Distribution Width 19.2 % (9.3-17.3); White Blood Count 3.4 T/CUMM (4-12)
[2020-01-07 06:59] LABS: Atypical Lymphocytes Few; Band Neutrophils 1 % (0-10); Eosinophils 1 % (0-10); Lymphocytes 23 % (20-55); Segmented Neutrophils 60 % (50-85); Total Cells Counted 100
[2020-01-07 07:00] LABS: Anisocytosis 1+; Burr Cells Few; Hypochromasia 1+; Microcytosis 1+; Ovalocytes Slight; Target Cells Slight
[2020-01-07 07:01] LABS: Platelet Estimate Adequate
[2020-01-07 07:03] LABS: Bilirubin,Total 2.4 MG/DL (0.2-1.0); Calcium 7.8 MG/DL (8.5-10.1); Osmolality,Calculated 277.4 MOS/KG (273-304); Risk Ratio 7.56; Total Protein 5.5 G/DL (6.4-8.3); VLDL CHOLESTEROL 22.2 MG/DL
[2020-01-07] MEDS: CIPROFLOXACIN INJ 400 MG in PREMIX 1 EACH IV SCH (09:28)
[2020-01-07] MEDS: PANTOPRAZOLE 40 MG TABLET PO SCH (09:30)
[2020-01-07 11:37] VITALS: BP 134/86
== END 2020-01-07 13:41 | disposition home or self-care (01) ==
LOC: N.ED 00:52 → INTOOBSV 04:10 → N.EDINP 04:10 → SUATTDRO 04:10 → N.EDINP 06:46 → N.3E 07:22
PROVIDERS: ADMIT Internal Medicine; ATTEND Family Medicine

== ENCOUNTER 2022-04-11 11:39 | Inpatient (IN) ==
[2022-04-11] MEDS ORDERED: SODIUM CHLORIDE 0.9% 1,000 ML IV STA (12:09)
[2022-04-11] MEDS ORDERED: ONDANSETRON 4 MG/2 ML VIAL IV STA (12:09)
[2022-04-11] MEDS ORDERED: HYDROmorphone 1 MG/1 ML SYRINGE IV STA (12:09)
[2022-04-11 12:29] LABS: Basophils % 0.3 % (0.0-0.8); Eosinophils % 0.8 % (0.00-10.9); Hematocrit 43.9 VOL% (42.0-52.0); Immature Granulocytes % 0.5 %; Immature Granulocytes Absolute 0.02 #; Lymphocytes # 1.1 10*3/uL (1.4-4.0); Mean Corpuscular HGB Conc 34.2 GM/DL (32-36); Mean Corpuscular Volume 86.9 FL (87-102); Mean Platelet Volume 11.3 FL (9.6-12.0); Monocytes # 0.4 10*3/uL (0.11-0.8); Monocytes % 10.1 % (1.7-12.7); Neutrophils % 61.3 % (38.7-73.9); Platelet Count 107 T/CUMM (130-400); Red Blood Count 5.05 MC/CUMM (3.8-5.5); Red Cell Distribution Width 16.7 % (9.3-17.3)
[2022-04-11 12:49] LABS: Albumin 3.5 G/DL (3.4-5.0); Bilirubin,Total 11.8 MG/DL (0.20-1.00); Calcium 9.3 MG/DL (8.5-10.1); Osmolality,Calculated 282.3 MOS/KG (273-304); Potassium 3.7 MMOL/L (3.5-5.1); Total Protein 7.5 G/DL (6.4-8.2)
[2022-04-11] MEDS ORDERED: HYDROmorphone 1 MG/1 ML SYRINGE IV PRN (13:33)
[2022-04-11] MEDS ORDERED: hydrALAZINE 20 MG/1 ML VIAL IV PRN (13:34)
[2022-04-11] MEDS: SODIUM CHLORIDE 0.45% 1,000 ML IV SCH ×2 (14:13→21:07)
[2022-04-11] MEDS: ENOXAPARIN 40 MG/0.4 ML SYRINGE SUBCUT SCH ×2 (14:13→14:20)
[2022-04-11] MEDS ORDERED: HYDROmorphone 1 MG/1 ML SYRINGE IV ONE (17:24)
[2022-04-11] MEDS: ONDANSETRON 4 MG/2 ML VIAL IV PRN (19:12)
[2022-04-12 06:22] LABS: Basophils % 0.3 % (0.0-0.8); Eosinophils % 0.6 % (0.00-10.9); Immature Granulocytes % 0.9 %; Immature Granulocytes Absolute 0.03 #; Lymphocytes # 0.8 10*3/uL (1.4-4.0); Lymphocytes % 23.1 % (21.2-54.2); Mean Corpuscular HGB Conc 33.4 GM/DL (32-36); Mean Corpuscular Volume 88.8 FL (87-102); Mean Platelet Volume 10.5 FL (9.6-12.0); Monocytes # 0.4 10*3/uL (0.11-0.8); Monocytes % 11.3 % (1.7-12.7); Neutrophils % 63.8 % (38.7-73.9); Red Blood Count 4.28 MC/CUMM (3.8-5.5); Red Cell Distribution Width 16.9 % (9.3-17.3); White Blood Count 3.5 T/CUMM (4-12)
[2022-04-12 06:26] LABS: Hemoglobin 12.7 GM/DL (14.0-18.0); Platelet Count 91 T/CUMM (130-400)
[2022-04-12 06:26] LABS: Albumin 2.6 G/DL (3.4-5.0); Calcium 8.5 MG/DL (8.5-10.1); Osmolality,Calculated 277.5 MOS/KG (273-304); Potassium 4.1 MMOL/L (3.5-5.1); Total Protein 5.6 G/DL (6.4-8.2)
[2022-04-12 06:33] LABS: Platelet Estimate Decreased
[2022-04-12] MEDS: amLODIPine 10 MG TABLET PO SCH (10:01)
[2022-04-12] MEDS: methylPREDNISolone SOD SUC 40 MG/1 ML VIAL IV SCH ×2 (10:04→20:56)
[2022-04-12] MEDS: SODIUM CHLORIDE 0.45% 1,000 ML IV SCH ×2 (10:04→20:56)
[2022-04-12] MEDS: ENOXAPARIN 40 MG/0.4 ML SYRINGE SUBCUT SCH (15:06)
[2022-04-12] MEDS: HYDROmorphone 1 MG/1 ML SYRINGE IV PRN (18:46)
[2022-04-13 05:03] LABS: Hematocrit 40.1 VOL% (42.0-52.0); Hemoglobin 13.6 GM/DL (14.0-18.0); Immature Granulocytes % 0.9 %; Immature Granulocytes Absolute 0.03 #; Lymphocytes # 0.5 10*3/uL (1.4-4.0); Lymphocytes % 14.3 % (21.2-54.2); Mean Corpuscular HGB Conc 33.9 GM/DL (32-36); Mean Corpuscular Volume 86.6 FL (87-102); Monocytes # 0.1 10*3/uL (0.11-0.8); Monocytes % 3.1 % (1.7-12.7); Neutrophils % 81.7 % (38.7-73.9); Platelet Count 96 T/CUMM (130-400); Red Blood Count 4.63 MC/CUMM (3.8-5.5); Red Cell Distribution Width 16.2 % (9.3-17.3); White Blood Count 3.2 T/CUMM (4-12)
[2022-04-13 05:10] LABS: INR 0.9; PT Patient Result 10.5 SECS (10.1-12.1)
[2022-04-13 05:24] LABS: Platelet Estimate Decreased
[2022-04-13 05:30] LABS: Albumin 2.8 G/DL (3.4-5.0); Osmolality,Calculated 280.5 MOS/KG (273-304); Total Protein 6.4 G/DL (6.4-8.2)
[2022-04-13 05:32] LABS: Bilirubin,Total 12.3 MG/DL (0.20-1.00)
[2022-04-13] MEDS: amLODIPine 10 MG TABLET PO SCH (08:59)
[2022-04-13] MEDS: methylPREDNISolone SOD SUC 40 MG/1 ML VIAL IV SCH ×2 (09:00→21:44)
[2022-04-13] MEDS: HYDROmorphone 1 MG/1 ML SYRINGE IV PRN ×2 (11:35→18:27)
[2022-04-13] MEDS: ONDANSETRON 4 MG/2 ML VIAL IV PRN ×2 (11:35→18:26)
[2022-04-13] MEDS: SODIUM CHLORIDE 0.45% 1,000 ML IV SCH (13:53)
[2022-04-13] MEDS: ENOXAPARIN 40 MG/0.4 ML SYRINGE SUBCUT SCH (13:54)
[2022-04-14 05:43] LABS: Hematocrit 40.5 VOL% (42.0-52.0); Hemoglobin 13.7 GM/DL (14.0-18.0); Immature Granulocytes % 0.5 %; Immature Granulocytes Absolute 0.03 #; Lymphocytes # 0.4 10*3/uL (1.4-4.0); Lymphocytes % 6.1 % (21.2-54.2); Mean Corpuscular HGB Conc 33.8 GM/DL (32-36); Mean Corpuscular Volume 87.1 FL (87-102); Mean Platelet Volume 10.6 FL (9.6-12.0); Monocytes # 0.2 10*3/uL (0.11-0.8); Monocytes % 2.6 % (1.7-12.7); Neutrophils % 90.8 % (38.7-73.9); Platelet Count 101 T/CUMM (130-400); Red Blood Count 4.65 MC/CUMM (3.8-5.5); Red Cell Distribution Width 16.6 % (9.3-17.3); White Blood Count 6.2 T/CUMM (4-12)
[2022-04-14 06:02] LABS: Albumin 2.7 G/DL (3.4-5.0); Bilirubin,Total 10.9 MG/DL (0.20-1.00); Osmolality,Calculated 284.3 MOS/KG (273-304); Potassium 4.2 MMOL/L (3.5-5.1); Total Protein 6.1 G/DL (6.4-8.2)
[2022-04-14 06:05] LABS: Lymphocytes 4 % (20-55); Platelet Estimate Decreased; Total Cells Counted 100
[2022-04-14 06:06] LABS: Hypochromia Slight; Microcytosis Slight
[2022-04-14 06:17] LABS: Hepatitis B Surface Ab Result Non-Reactive (NonReactive); Hepatitis B Surface Ag Quant < 0.10 Index; Hepatitis B Surface Ag Result Non-Reactive (NonReactive)
[2022-04-14] MEDS: amLODIPine 10 MG TABLET PO SCH (08:39)
[2022-04-14] MEDS: methylPREDNISolone SOD SUC 40 MG/1 ML VIAL IV SCH (08:40)
[2022-04-14] MEDS: SODIUM CHLORIDE 0.45% 1,000 ML IV SCH (10:00)
[2022-04-14] MEDS: HYDROmorphone 1 MG/1 ML SYRINGE IV PRN (12:47)
[2022-04-14 16:10] VITALS: BP 159/78
[2022-04-15] MEDS ORDERED: predniSONE 20 MG TABLET PO SCH (09:00)
== END 2022-04-14 17:19 | disposition home or self-care (01) | DRG 445 ==
LOC: N.ED 11:39 → N.2W 11:39 → SUATTDRO 13:32 → N.2W 14:50 → SUATTDRO 04-12 08:38 → N.5E 04-12 18:01
PROVIDERS: ADMIT Hospitalist; ATTEND Hospitalist

== ENCOUNTER 2022-05-11 15:52 | Inpatient (IN) ==
[2022-05-11] MEDS ORDERED: ONDANSETRON 4 MG/2 ML VIAL IV STA (20:21)
[2022-05-11] MEDS ORDERED: hydrALAZINE 20 MG/1 ML VIAL IV STA (20:21)
[2022-05-11] MEDS ORDERED: HYDROmorphone 1 MG/1 ML SYRINGE IV STA (20:21)
[2022-05-11] MEDS ORDERED: SODIUM CHLORIDE 0.9% 500 ML IV STA (20:21)
[2022-05-11 20:30] LABS: Basophils % 0.1 % (0.0-0.8); Hematocrit 51.5 VOL% (42.0-52.0); Hemoglobin 17.3 GM/DL (14.0-18.0); Immature Granulocytes % 1.1 %; Immature Granulocytes Absolute 0.08 #; Lymphocytes # 0.4 10*3/uL (1.4-4.0); Lymphocytes % 5.6 % (21.2-54.2); Mean Corpuscular HGB Conc 33.6 GM/DL (32-36); Mean Corpuscular Volume 84.3 FL (87-102); Monocytes # 0.3 10*3/uL (0.11-0.8); Monocytes % 3.3 % (1.7-12.7); Neutrophils % 89.9 % (38.7-73.9); Platelet Count 131 T/CUMM (130-400); Red Blood Count 6.11 MC/CUMM (3.8-5.5); Red Cell Distribution Width 22.1 % (9.3-17.3); White Blood Count 7.5 T/CUMM (4-12)
[2022-05-11 20:43] LABS: Alanine Aminotransferase 122 U/L (16-61); Albumin 2.4 G/DL (3.4-5.0); Alkaline Phosphatase 380 U/L (45-117); Amylase 93 U/L (25-115); Aspartate Amino Transferase 83 U/L (0-37); Blood Urea Nitrogen 40 MG/DL (7-18); Carbon Dioxide 21 MMOL/L (21-32); Chloride 109 MMOL/L (98-107); Glucose 162 MG/DL (74-106); Osmolality,Calculated 286.8 MOS/KG (273-304); Potassium 5.3 MMOL/L (3.5-5.1); Sodium 137 MMOL/L (136-145); Total Protein 5.6 G/DL (6.4-8.2)
[2022-05-11 20:47] LABS: Lactic Acid 2.5 MMOL/L (0.4-2.0)
[2022-05-11] MEDS ORDERED: ALUMINUM/MAGNES/SIMETH MAX STR 30 ML UDCUP PO PRN (21:29)
[2022-05-11 21:58] LABS: Bacteria,Urine Occasional /HPF (Few); Mucus,Urine Occasional /LPF (Occasional); Squamous Epithelial Cell,Urine Occasional /HPF (0-10)
[2022-05-11 22:05] LABS: Urine Appearance Clear (Clear); Urine Color Brown (Yellow); Urine Specific Gravity 1.025 (1.001-1.035); Urine pH 5.5 (4.5-8.0)
[2022-05-11 22:06] LABS: Bilirubin,Urine Large mg/dL (Negative); Blood, Urine Trace mg/dL (Negative); Glucose,Urine (UA) 100 mg/dL (Negative); Ketones,Urine Trace mg/dL (Negative); Nitrite,Urine Negative (Negative); Protein,Urine >=300 mg/dL (Negative)
[2022-05-11] MEDS: ENOXAPARIN 40 MG/0.4 ML SYRINGE SUBCUT SCH (23:12)
[2022-05-11] MEDS: HYDROmorphone 1 MG/1 ML SYRINGE IV PRN (23:48)
[2022-05-11] MEDS: SODIUM CHLORIDE 0.45% 1,000 ML IV SCH (23:48)
[2022-05-11] MEDS: ONDANSETRON 4 MG/2 ML VIAL IV PRN (23:49)
[2022-05-12] MEDS: hydrOXYzine HCL 25 MG TABLET PO PRN ×2 (00:33→19:36)
[2022-05-12 05:48] LABS: Basophils % 0.2 % (0.0-0.8); Hematocrit 43.1 VOL% (42.0-52.0); Hemoglobin 14.9 GM/DL (14.0-18.0); Immature Granulocytes % 1.5 %; Lymphocytes # 0.3 10*3/uL (1.4-4.0); Lymphocytes % 5.1 % (21.2-54.2); Mean Corpuscular HGB Conc 34.6 GM/DL (32-36); Mean Corpuscular Volume 82.1 FL (87-102); Mean Platelet Volume 10.9 FL (9.6-12.0); Monocytes # 0.5 10*3/uL (0.11-0.8); Monocytes % 6.9 % (1.7-12.7); Neutrophils % 86.3 % (38.7-73.9); Platelet Count 109 T/CUMM (130-400); Red Blood Count 5.25 MC/CUMM (3.8-5.5); Red Cell Distribution Width 21.4 % (9.3-17.3); White Blood Count 6.5 T/CUMM (4-12)
[2022-05-12 05:55] LABS: PT Patient Result 11.5 SECS (10.1-12.1); Partial Thromboplastin Time 30.1 SECS (23.7-32.9)
[2022-05-12 06:12] LABS: Albumin 1.9 G/DL (3.4-5.0); Calcium 8.1 MG/DL (8.5-10.1); Osmolality,Calculated 289.4 MOS/KG (273-304); Total Protein 4.6 G/DL (6.4-8.2)
[2022-05-12 06:20] LABS: Bilirubin,Total 19.4 MG/DL (0.20-1.00)
[2022-05-12] MEDS ORDERED: predniSONE 20 MG TABLET PO SCH (09:00)
[2022-05-12] MEDS ORDERED: METOPROLOL TARTRATE 25 MG TABLET PO SCH (09:00)
[2022-05-12] MEDS: SODIUM CHLORIDE 0.45% 1,000 ML IV SCH (10:58)
[2022-05-12] MEDS: cefTRIAXone 1,000 MG in SODIUM CHLORIDE 0.9% 100 ML IV SCH (10:58)
[2022-05-12] MEDS: HYDROmorphone 1 MG/1 ML SYRINGE IV PRN (13:17)
[2022-05-12] MEDS: METOPROLOL TARTRATE 25 MG TABLET PO SCH ×2 (14:47→22:52)
[2022-05-12] MEDS: amLODIPine 10 MG TABLET PO SCH (14:48)
[2022-05-12] MEDS: DOCUSATE SODIUM 100 MG CAPSULE PO SCH ×2 (14:48→22:52)
[2022-05-12] MEDS: PANTOPRAZOLE 40 MG TABLET PO SCH (14:48)
[2022-05-12] MEDS: ENOXAPARIN 40 MG/0.4 ML SYRINGE SUBCUT SCH (22:52)
[2022-05-13] MEDS: SODIUM CHLORIDE 0.45% 1,000 ML IV SCH ×2 (02:39→14:46)
[2022-05-13 05:07] LABS: Hematocrit 42.9 VOL% (42.0-52.0); Hemoglobin 14.9 GM/DL (14.0-18.0); Immature Granulocytes % 1.2 %; Immature Granulocytes Absolute 0.07 #; Lymphocytes # 0.3 10*3/uL (1.4-4.0); Lymphocytes % 4.9 % (21.2-54.2); Mean Corpuscular HGB Conc 34.7 GM/DL (32-36); Mean Platelet Volume 10.8 FL (9.6-12.0); Monocytes # 0.2 10*3/uL (0.11-0.8); Neutrophils % 90.9 % (38.7-73.9); Platelet Count 104 T/CUMM (130-400); Red Blood Count 5.17 MC/CUMM (3.8-5.5); Red Cell Distribution Width 21.7 % (9.3-17.3); White Blood Count 5.7 T/CUMM (4-12)
[2022-05-13 05:31] LABS: Lymphocytes 4 % (20-55); Platelet Estimate Decreased; Total Cells Counted 100
[2022-05-13 05:32] LABS: Calcium 7.9 MG/DL (8.5-10.1); Osmolality,Calculated 287.8 MOS/KG (273-304); Potassium 5.4 MMOL/L (3.5-5.1); Total Protein 4.7 G/DL (6.4-8.2)
[2022-05-13 05:37] LABS: Bilirubin,Total 20.2 MG/DL (0.20-1.00)
[2022-05-13] MEDS: cefTRIAXone 1,000 MG in SODIUM CHLORIDE 0.9% 100 ML IV SCH (06:15)
[2022-05-13] MEDS: predniSONE 20 MG TABLET PO SCH (09:31)
[2022-05-13] MEDS: PANTOPRAZOLE 40 MG TABLET PO SCH (09:31)
[2022-05-13] MEDS: DOCUSATE SODIUM 100 MG CAPSULE PO SCH ×2 (09:31→21:25)
[2022-05-13] MEDS: METOPROLOL TARTRATE 25 MG TABLET PO SCH ×2 (09:32→21:25)
[2022-05-13] MEDS: oxyCODONE IR 5 MG TABLET PO PRN (09:32)
[2022-05-13] MEDS: amLODIPine 10 MG TABLET PO SCH (09:32)
[2022-05-13] MEDS: SODIUM ZIRCONIUM CYCLOSILICATE 10 GM PACK PO SCH ×3 (09:32→21:26)
[2022-05-13] MEDS: HYDROmorphone 1 MG/1 ML SYRINGE IV PRN (12:52)
[2022-05-13] MEDS: hydrOXYzine HCL 25 MG TABLET PO PRN (14:42)
[2022-05-13] MEDS ORDERED: INSULIN REGULAR 10 UNIT, CALCIUM GLUCONATE 1,000 MG in DEXTROSE 10% 250 ML IV ONE (20:00)
[2022-05-13] MEDS ORDERED: LORazepam 2 MG/1 ML VIAL IV PRN (21:44)
[2022-05-14 01:11] LABS: Albumin 2.1 G/DL (3.4-5.0); Calcium 8.5 MG/DL (8.5-10.1); Osmolality,Calculated 283.8 MOS/KG (273-304); Potassium 5.4 MMOL/L (3.5-5.1); Total Protein 4.8 G/DL (6.4-8.2)
[2022-05-14 01:16] LABS: Bilirubin,Total 20.2 MG/DL (0.20-1.00)
[2022-05-14] MEDS: SODIUM CHLORIDE 0.45% 1,000 ML IV SCH (01:24)
[2022-05-14] MEDS ORDERED: DEXTROSE 5% NACL 0.45% 1,000 ML IV SCH (02:00)
[2022-05-14] MEDS: cefTRIAXone 1,000 MG in SODIUM CHLORIDE 0.9% 100 ML IV SCH (05:33)
[2022-05-14 05:34] LABS: Basophils % 0.2 % (0.0-0.8); Hematocrit 43.9 VOL% (42.0-52.0); Hemoglobin 15.4 GM/DL (14.0-18.0); Immature Granulocytes % 3.7 %; Immature Granulocytes Absolute 0.44 #; Lymphocytes # 0.3 10*3/uL (1.4-4.0); Lymphocytes % 2.6 % (21.2-54.2); Mean Corpuscular HGB Conc 35.1 GM/DL (32-36); Mean Corpuscular Volume 81.4 FL (87-102); Mean Platelet Volume 10.6 FL (9.6-12.0); Monocytes # 1.2 10*3/uL (0.11-0.8); Monocytes % 9.7 % (1.7-12.7); NRBC # 0.02 10*3/uL; Neutrophils % 83.8 % (38.7-73.9); Platelet Count 133 T/CUMM (130-400); Red Blood Count 5.39 MC/CUMM (3.8-5.5); Red Cell Distribution Width 22.3 % (9.3-17.3); White Blood Count 12.1 T/CUMM (4-12)
[2022-05-14 05:41] LABS: INR 1.1; PT Patient Result 11.9 SECS (10.1-12.1)
[2022-05-14 05:55] LABS: Band Neutrophils 2 % (0-10); Lymphocytes 1 % (20-55); Microcytosis Slight; Schistocytes Slight; Target Cells Slight; Total Cells Counted 100
[2022-05-14 05:56] LABS: Albumin 2.2 G/DL (3.4-5.0); Calcium 8.4 MG/DL (8.5-10.1); Osmolality,Calculated 287.8 MOS/KG (273-304); Platelet Estimate Adequate; Polychromasia Slight; Potassium 5.4 MMOL/L (3.5-5.1); Total Protein 4.9 G/DL (6.4-8.2)
[2022-05-14 06:01] LABS: Bilirubin,Total 21.4 MG/DL (0.20-1.00)
[2022-05-14] MEDS ORDERED: INDOMETHACIN SUPP 50 MG SUPP RECTAL ONE (08:00)
[2022-05-14] MEDS: predniSONE 20 MG TABLET PO SCH (08:41)
[2022-05-14] MEDS: amLODIPine 10 MG TABLET PO SCH (08:41)
[2022-05-14] MEDS: DOCUSATE SODIUM 100 MG CAPSULE PO SCH (08:41)
[2022-05-14] MEDS: METOPROLOL TARTRATE 25 MG TABLET PO SCH (08:41)
[2022-05-14] MEDS: PANTOPRAZOLE 40 MG TABLET PO SCH (08:41)
[2022-05-14] MEDS: LACTATED RINGERS 1,000 ML IV SCH (08:57)
[2022-05-14] MEDS ORDERED: RIFAXIMIN 550 MG TABLET PO SCH ×2 (09:34→10:00)
[2022-05-14] MEDS: RIFAXIMIN 550 MG TABLET PO SCH (09:57)
[2022-05-14] MEDS: hydrALAZINE 20 MG/1 ML VIAL IV PRN (11:35)
[2022-05-14] MEDS: SODIUM BICARB INJ 50 MEQ in DEXTROSE 5% NACL 0.45% 1,000 ML IV SCH (11:50)
[2022-05-14] MEDS ORDERED: LIDOCAINE 2% VISCOUS 100 ML BOTTLE ONE (13:14)
[2022-05-14] MEDS: LACTULOSE 20 GM/30 ML UDCUP PO SCH ×2 (14:35→17:36)
[2022-05-15] MEDS: SODIUM BICARB INJ 50 MEQ in DEXTROSE 5% NACL 0.45% 1,000 ML IV SCH ×2 (00:37→10:40)
[2022-05-15] MEDS: DOCUSATE SODIUM 100 MG CAPSULE PO SCH ×3 (00:37→22:10)
[2022-05-15] MEDS: oxyCODONE IR 5 MG TABLET PO PRN (00:39)
[2022-05-15] MEDS: RIFAXIMIN 550 MG TABLET PO SCH ×3 (00:40→22:10)
[2022-05-15] MEDS: METOPROLOL TARTRATE 25 MG TABLET PO SCH ×3 (00:41→22:10)
[2022-05-15] MEDS: LACTULOSE 20 GM/30 ML UDCUP PO SCH ×4 (01:11→18:44)
[2022-05-15 05:12] LABS: Basophils % 0.6 % (0.0-0.8); Eosinophils % 0.3 % (0.00-10.9); Hematocrit 41.4 VOL% (42.0-52.0); Hemoglobin 14.5 GM/DL (14.0-18.0); Immature Granulocytes % 2.3 %; Immature Granulocytes Absolute 0.15 #; Lymphocytes # 0.5 10*3/uL (1.4-4.0); Lymphocytes % 7.8 % (21.2-54.2); Mean Corpuscular Volume 81.5 FL (87-102); Mean Platelet Volume 10.8 FL (9.6-12.0); Monocytes # 0.4 10*3/uL (0.11-0.8); Monocytes % 6.6 % (1.7-12.7); NRBC # 0.04 10*3/uL; Neutrophils % 82.4 % (38.7-73.9); Platelet Count 116 T/CUMM (130-400); Red Blood Count 5.08 MC/CUMM (3.8-5.5); Red Cell Distribution Width 22.5 % (9.3-17.3); White Blood Count 6.6 T/CUMM (4-12)
[2022-05-15 05:43] LABS: Albumin 1.9 G/DL (3.4-5.0); Calcium 8.3 MG/DL (8.5-10.1); Osmolality,Calculated 292.4 MOS/KG (273-304); Potassium 3.7 MMOL/L (3.5-5.1); Total Protein 4.2 G/DL (6.4-8.2)
[2022-05-15 05:59] LABS: Anisocytosis 1+; Burr Cells 1+; Macrocytosis Slight; Ovalocytes Few; Platelet Estimate Adequate; Target Cells 1+
[2022-05-15] MEDS: PANTOPRAZOLE 40 MG TABLET PO SCH (09:59)
[2022-05-15] MEDS: predniSONE 20 MG TABLET PO SCH (10:00)
[2022-05-15] MEDS: amLODIPine 10 MG TABLET PO SCH (10:25)
[2022-05-15] MEDS: LACTATED RINGERS 1,000 ML IV SCH (10:41)
[2022-05-15] MEDS: hydrALAZINE 20 MG/1 ML VIAL IV PRN ×2 (14:37→21:15)
[2022-05-16] MEDS: LACTULOSE 20 GM/30 ML UDCUP PO SCH ×3 (00:01→11:33)
[2022-05-16] MEDS: SODIUM BICARB INJ 50 MEQ in DEXTROSE 5% NACL 0.45% 1,000 ML IV SCH ×3 (01:22→21:40)
[2022-05-16 06:07] LABS: Basophils % 0.1 % (0.0-0.8); Eosinophils % 0.1 % (0.00-10.9); Hematocrit 42.2 VOL% (42.0-52.0); Hemoglobin 15.4 GM/DL (14.0-18.0); Immature Granulocytes % 1.4 %; Immature Granulocytes Absolute 0.11 #; Lymphocytes # 0.3 10*3/uL (1.4-4.0); Lymphocytes % 3.9 % (21.2-54.2); Mean Corpuscular HGB Conc 36.5 GM/DL (32-36); Mean Corpuscular Volume 80.2 FL (87-102); Monocytes # 0.5 10*3/uL (0.11-0.8); Monocytes % 6.7 % (1.7-12.7); NRBC # 0.04 10*3/uL; Neutrophils % 87.8 % (38.7-73.9); Platelet Count 98 T/CUMM (130-400); Red Blood Count 5.26 MC/CUMM (3.8-5.5); Red Cell Distribution Width 22.7 % (9.3-17.3); White Blood Count 7.6 T/CUMM (4-12)
[2022-05-16 06:37] LABS: Anisocytosis Slight; Burr Cells 1+; Platelet Estimate Decreased; Target Cells 1+
[2022-05-16 06:38] LABS: Macrocytosis 1+
[2022-05-16 07:09] LABS: Albumin 1.6 G/DL (3.4-5.0); Calcium 8.2 MG/DL (8.5-10.1); Osmolality,Calculated 293.1 MOS/KG (273-304); Potassium 5.5 MMOL/L (3.5-5.1); Total Protein 4.4 G/DL (6.4-8.2)
[2022-05-16 07:25] LABS: Bilirubin,Total 24.1 MG/DL (0.20-1.00)
[2022-05-16] MEDS ORDERED: SODIUM POLYSTYRENE SULFATE 15 GM/60 ML BOTTLE PO ONE (08:05)
[2022-05-16] MEDS: SODIUM ZIRCONIUM CYCLOSILICATE 10 GM PACK PO SCH ×3 (11:34→20:56)
[2022-05-16] MEDS: PANTOPRAZOLE 40 MG TABLET PO SCH (12:26)
[2022-05-16] MEDS: METOPROLOL TARTRATE 25 MG TABLET PO SCH ×3 (12:26→20:56)
[2022-05-16] MEDS: amLODIPine 10 MG TABLET PO SCH ×2 (12:26→12:40)
[2022-05-16] MEDS: DOCUSATE SODIUM 100 MG CAPSULE PO SCH ×2 (13:46→20:55)
[2022-05-16] MEDS: predniSONE 20 MG TABLET PO SCH (15:39)
[2022-05-16] MEDS: RIFAXIMIN 550 MG TABLET PO SCH ×2 (15:39→20:56)
[2022-05-17] MEDS: SODIUM BICARB INJ 50 MEQ in DEXTROSE 5% NACL 0.45% 1,000 ML IV SCH ×2 (02:00→22:52)
[2022-05-17 06:02] LABS: Basophils % 0.2 % (0.0-0.8); Hematocrit 40.8 VOL% (42.0-52.0); Hemoglobin 14.7 GM/DL (14.0-18.0); Immature Granulocytes % 1.7 %; Lymphocytes # 0.3 10*3/uL (1.4-4.0); Lymphocytes % 5.2 % (21.2-54.2); Monocytes # 0.3 10*3/uL (0.11-0.8); Monocytes % 5.7 % (1.7-12.7); NRBC # 0.04 10*3/uL; Neutrophils % 87.2 % (38.7-73.9); Platelet Count 90 T/CUMM (130-400); Red Blood Count 5.04 MC/CUMM (3.8-5.5); Red Cell Distribution Width 22.9 % (9.3-17.3); White Blood Count 5.8 T/CUMM (4-12)
[2022-05-17 06:22] LABS: Platelet Estimate Decreased
[2022-05-17 06:25] LABS: Albumin 1.7 G/DL (3.4-5.0); Calcium 7.8 MG/DL (8.5-10.1); Osmolality,Calculated 294.3 MOS/KG (273-304); Potassium 3.5 MMOL/L (3.5-5.1); Total Protein 3.9 G/DL (6.4-8.2)
[2022-05-17 06:27] LABS: Bilirubin,Total 25.7 MG/DL (0.20-1.00)
[2022-05-17] MEDS ORDERED: INDOMETHACIN SUPP 50 MG SUPP RECTAL ONE (07:09)
[2022-05-17] MEDS: LACTULOSE 20 GM/30 ML UDCUP PO SCH ×4 (07:33→18:50)
[2022-05-17] MEDS ORDERED: LIDOCAINE 2% 5 ML VIAL ONE (08:44)
[2022-05-17] MEDS ORDERED: HYDROCORTISONE 100 MG VIAL ONE (08:44)
[2022-05-17] MEDS ORDERED: propofoL 200 MG/20 ML VIAL IV ONE (08:44)
[2022-05-17] MEDS ORDERED: SUCCINYLCHOLINE 200 MG/10 ML VIAL ONE (08:44)
[2022-05-17] MEDS ORDERED: fentaNYL 100 MCG/2 ML VIAL ONE (08:45)
[2022-05-17] MEDS: LACTATED RINGERS 1,000 ML IV SCH (09:26)
[2022-05-17] MEDS ORDERED: ePHEDrine 50 MG/ML VIAL ONE (09:48)
[2022-05-17] MEDS ORDERED: ONDANSETRON 4 MG/2 ML VIAL ONE (09:57)
[2022-05-17] MEDS: METOPROLOL TARTRATE 25 MG TABLET PO SCH ×2 (13:13→22:53)
[2022-05-17] MEDS: SODIUM ZIRCONIUM CYCLOSILICATE 10 GM PACK PO SCH ×3 (13:13→22:53)
[2022-05-17] MEDS: amLODIPine 10 MG TABLET PO SCH (13:14)
[2022-05-17] MEDS: DOCUSATE SODIUM 100 MG CAPSULE PO SCH ×2 (13:14→22:53)
[2022-05-17] MEDS: predniSONE 20 MG TABLET PO SCH (13:14)
[2022-05-17] MEDS: PANTOPRAZOLE 40 MG TABLET PO SCH (13:14)
[2022-05-17] MEDS: RIFAXIMIN 550 MG TABLET PO SCH ×2 (13:14→22:53)
[2022-05-18] MEDS: LACTULOSE 20 GM/30 ML UDCUP PO SCH ×5 (00:51→22:11)
[2022-05-18 04:56] LABS: Basophils % 0.3 % (0.0-0.8); Hematocrit 43.7 VOL% (42.0-52.0); Hemoglobin 15.2 GM/DL (14.0-18.0); Immature Granulocytes % 0.9 %; Immature Granulocytes Absolute 0.07 #; Lymphocytes # 0.3 10*3/uL (1.4-4.0); Lymphocytes % 3.6 % (21.2-54.2); Mean Corpuscular HGB Conc 34.8 GM/DL (32-36); Mean Corpuscular Volume 80.6 FL (87-102); Monocytes # 0.5 10*3/uL (0.11-0.8); Monocytes % 6.7 % (1.7-12.7); Neutrophils % 88.5 % (38.7-73.9); Platelet Count 89 T/CUMM (130-400); Red Blood Count 5.42 MC/CUMM (3.8-5.5); Red Cell Distribution Width 23.6 % (9.3-17.3); White Blood Count 7.5 T/CUMM (4-12)
[2022-05-18 05:34] LABS: Albumin 1.6 G/DL (3.4-5.0); Osmolality,Calculated 301.1 MOS/KG (273-304); Potassium 3.9 MMOL/L (3.5-5.1); Total Protein 3.8 G/DL (6.4-8.2)
[2022-05-18 05:37] LABS: Lymphocytes 5 % (20-55); Nucleated Red Blood Cells 2 /100 WBC (0-5); Platelet Estimate Decreased; Total Cells Counted 100
[2022-05-18 05:38] LABS: Target Cells Slight
[2022-05-18 05:42] LABS: Bilirubin,Total 27.8 MG/DL (0.20-1.00)
[2022-05-18] MEDS: SODIUM CHLORIDE 0.9% 1,000 ML IV SCH ×3 (07:23→22:36)
[2022-05-18] MEDS: SODIUM BICARB INJ 50 MEQ in DEXTROSE 5% NACL 0.45% 1,000 ML IV SCH (08:14)
[2022-05-18] MEDS: LACTATED RINGERS 1,000 ML IV SCH (08:14)
[2022-05-18] MEDS: METOPROLOL TARTRATE 25 MG TABLET PO SCH ×2 (09:10→22:10)
[2022-05-18] MEDS: SODIUM ZIRCONIUM CYCLOSILICATE 10 GM PACK PO SCH (09:10)
[2022-05-18] MEDS: predniSONE 20 MG TABLET PO SCH (09:10)
[2022-05-18] MEDS: amLODIPine 10 MG TABLET PO SCH (09:10)
[2022-05-18] MEDS: DOCUSATE SODIUM 100 MG CAPSULE PO SCH ×2 (09:10→22:10)
[2022-05-18] MEDS: PANTOPRAZOLE 40 MG TABLET PO SCH (09:10)
[2022-05-18] MEDS: RIFAXIMIN 550 MG TABLET PO SCH ×2 (09:10→22:10)
[2022-05-18] MEDS: ONDANSETRON 4 MG/2 ML VIAL IV PRN (13:51)
[2022-05-18] MEDS: MENTHOL/ZINC OXIDE OINT 71 GM JAR TOP SCH ×2 (14:32→22:10)
[2022-05-18 17:39] LABS: RBC,Urine 12 /HPF (0-4)
[2022-05-18 17:49] LABS: Urine Color Brown (Yellow)
[2022-05-18 17:51] LABS: Glucose,Urine (UA) 100 mg/dL (Negative); Ketones,Urine 15 mg/dL (Negative); Nitrite,Urine Negative (Negative); Protein,Urine 100 mg/dL (Negative); Urine Appearance Turbid (Clear); Urine Specific Gravity 1.025 (1.001-1.035)
[2022-05-18 17:52] LABS: Bilirubin,Urine Large mg/dL (Negative); Blood, Urine Moderate mg/dL (Negative)
[2022-05-19 05:09] LABS: Basophils % 0.3 % (0.0-0.8); Hematocrit 42.1 VOL% (42.0-52.0); Hemoglobin 15.2 GM/DL (14.0-18.0); Immature Granulocytes % 4.5 %; Immature Granulocytes Absolute 0.39 #; Lymphocytes # 0.3 10*3/uL (1.4-4.0); Lymphocytes % 3.7 % (21.2-54.2); Mean Corpuscular HGB Conc 36.1 GM/DL (32-36); Mean Corpuscular Volume 80.2 FL (87-102); Monocytes # 0.6 10*3/uL (0.11-0.8); Monocytes % 7.1 % (1.7-12.7); Neutrophils % 84.4 % (38.7-73.9); Platelet Count 108 T/CUMM (130-400); Red Blood Count 5.25 MC/CUMM (3.8-5.5); Red Cell Distribution Width 24.3 % (9.3-17.3); White Blood Count 8.6 T/CUMM (4-12)
[2022-05-19 05:38] LABS: Albumin 1.7 G/DL (3.4-5.0); Calcium 8.1 MG/DL (8.5-10.1); Potassium 4.5 MMOL/L (3.5-5.1); Total Protein 3.9 G/DL (6.4-8.2)
[2022-05-19 05:42] LABS: Bilirubin,Total 31.2 MG/DL (0.20-1.00)
[2022-05-19 05:46] LABS: Band Neutrophils 1 % (0-10); Lymphocytes 4 % (20-55); Nucleated Red Blood Cells 4 /100 WBC (0-5); Target Cells 1+; Total Cells Counted 100
[2022-05-19 05:47] LABS: Acanthocytes Few; Burr Cells 1+; Macrocytosis 1+; Schistocytes Slight
[2022-05-19 05:48] LABS: Platelet Estimate Decreased
[2022-05-19] MEDS: SODIUM CHLORIDE 0.9% 1,000 ML IV SCH (07:20)
[2022-05-19] MEDS: LACTULOSE 20 GM/30 ML UDCUP PO SCH ×2 (07:23→13:50)
[2022-05-19] MEDS: SODIUM BICARB INJ 50 MEQ in SODIUM CHLORIDE 0.45% 1,000 ML IV SCH ×2 (08:50→20:18)
[2022-05-19] MEDS: MEROPENEM 500 MG in SODIUM CHLORIDE 0.9% 100 ML IV SCH ×2 (08:50→20:40)
[2022-05-19] MEDS: RIFAXIMIN 550 MG TABLET PO SCH ×2 (08:54→20:40)
[2022-05-19] MEDS: METOPROLOL TARTRATE 25 MG TABLET PO SCH ×2 (08:54→20:40)
[2022-05-19] MEDS: PANTOPRAZOLE 40 MG TABLET PO SCH (08:54)
[2022-05-19] MEDS: amLODIPine 10 MG TABLET PO SCH (08:55)
[2022-05-19] MEDS: MENTHOL/ZINC OXIDE OINT 71 GM JAR TOP SCH ×2 (08:55→20:40)
[2022-05-19] MEDS: DOCUSATE SODIUM 100 MG CAPSULE PO SCH ×2 (08:55→20:40)
[2022-05-19] MEDS ORDERED: predniSONE 20 MG TABLET PO SCH (09:00)
[2022-05-19] MEDS ORDERED: MORPHINE 2 MG/1 ML SYRINGE IV PRN (16:35)
[2022-05-19] MEDS: MORPHINE 2 MG/1 ML SYRINGE IV PRN ×2 (16:51→23:03)
[2022-05-20] MEDS: LACTULOSE 20 GM/30 ML UDCUP PO SCH (00:13)
[2022-05-20 00:25] VITALS: BP 89/47
== END 2022-05-20 02:00 | disposition expired | DRG 435 ==
LOC: N.ED 15:52 → SUATTDRO 21:29 → N.TELES 21:29
PROVIDERS: ADMIT Internal Medicine; ATTEND Emergency Medicine